=== PATIENT | female | born 1960 | race Caucasian/White ===

== ENCOUNTER 2018-11-07 16:49 | Emergency (ER) | payer OTHER ==
[~2018-11-07] VITALS: Ht 162.6 cm; Wt 70.3 kg
[~2018-11-07 16:49] MED LIST: ACET325T9 PO
[2018-11-07 17:01] VITALS: BP 144/84
--- NOTE | 2018-11-07 17:11 | PHYS DOC ---
Past History Past Medical History: Cancer (renal), COPD Past Surgical History: Cancer Surgery (right nephrectomy), , Hysterectomy Smoking: Non-smoker Alcohol Use: Rarely Drug Use: None Adult General Chief Complaint Chief Complaint: FLU SYMPTOM HPI HPI Patient is a 58-year-old female presents with cough and congestion. This has been going on for 3 days. Subjective fever. No relief with Tylenol or TheraFlu. Cough is productive of yellow tinged sputum. There is some nausea, no vomiting, no diarrhea. No flu vaccine this year.[] Review of Systems Review of Systems Constitutional: Denies shaking chills [] Eyes: Denies change in visual acuity, redness, or eye pain [] HENT: Denies ear pain or sore throat [] Respiratory: Denies shortness of breath, see history of present illness [] Cardiovascular: No chest pain or palpitations[] GI: Denies abdominal pain, nausea, vomiting, bloody stools or diarrhea [] : Denies dysuria or hematuria [] Musculoskeletal: Denies back pain or joint pain [] Integument: Denies rash or skin lesions [] Neurologic: Denies headache, focal weakness or sensory changes [] Endocrine: Denies polyuria or polydipsia [] All other systems were reviewed and found to be within normal limits, except as documented in this note. Allergies Allergies Allergies Coded Allergies Type Severity Reaction Last Updated Verified acetaminophen Allergy Intermediate Itching 08/10/15 Yes hydrocodone Allergy Intermediate Itching 08/10/15 Yes Physical Exam Physical Exam Constitutional: Well developed, well nourished, no acute distress, non-toxic appearance. [] HENT: Normocephalic, atraumatic, left maxillary sinus tenderness to percussion, bilateral external ears normal, oropharynx moist, no oral exudates, nose normal. [] Eyes: PERRLA, EOMI, conjunctiva normal, no discharge. [] Neck: Normal range of motion, no tenderness, supple, no stridor. [] Cardiovascular:Heart rate regular rhythm, no murmur [] Lungs & Thorax: Bilateral breath sounds are coarse, no wheezes, no increased work of breathing[] Abdomen: Bowel sounds normal, soft, no tenderness, no masses, no pulsatile masses. [] Skin: Warm, dry, no erythema, no rash. [] Back: No tenderness, no CVA tenderness. [] Extremities: No tenderness, no cyanosis, no clubbing, ROM intact, no edema. [] Neurologic: Alert and oriented X 3, normal motor function, normal sensory function, no focal deficits noted. [] Psychologic: Affect normal, judgement normal, mood normal. [] Current Patient Data Vital Signs Vital Signs Date Time Temp Pulse Resp B/P (MAP) Pulse Ox O2 Delivery O2 Flow Rate FiO2 11/07/18 17:01 99.5 110 18 94 Room Air EKG EKG [] Radiology/Procedures Radiology/Procedures Chest x-ray shows no infiltrate, no effusion, no pneumothorax[] Course & Med Decision Making Course & Med Decision Making Pertinent Labs and Imaging studies reviewed. (See chart for details) Medical decision making: There is no evidence of pneumonia or pneumothorax. This may be a flu syndrome however patient is beyond the time frame for Tamiflu to be effective so this test was not ordered since it would not change treatment. We'll treat patient for her symptoms. ED course: Patient arrived, was placed in bed, and tolerated exam well. She was given a breathing treatment which improved breath sounds. Lungs were clear to auscultation. Findings were discussed with the patient and family who voiced understanding. All questions were answered. She was discharged in improved condition.[] Dragon Disclaimer Dragon Disclaimer This electronic medical record was generated, in whole or in part, using a voice recognition dictation system. Departure Departure: Impression: Primary Impression: Acute bronchitis Additional Impression: Influenza-like illness Disposition: HOME, SELF-CARE Condition: IMPROVED Referrals: EMILY LEE MD (PCP) Follow-up in 2 days Patient Instructions: Acute Bronchitis, Influenza, Adult Additional Instructions: Drink plenty of fluids, frequent small sips. No fatty foods, no milk, and no pepper for the next 48 hours. For the next 48 hours eat a diet rich in carbohydrates with foods such as bananas, rice, applesauce, and toast. Follow- up with your regular doctor in 2 days. Return to the ER if worsening difficulty breathing or any other concerns. Scripts Albuterol Sulfate (PROVENTIL HFA INHALER) 6.7 Gm Hfa.aer.ad 1 PUFF INH PRN Q4HRS PRN for FOR ASTHMA, #1 INHALER 0 Refills Prov: TAYLOR BORJA DO 11/07/18 Ondansetron Hcl (ZOFRAN) 4 Mg Tablet 1 TAB PO Q6HRS for nausea or vomiting, #20 TAB Prov: TAYLOR BORJA DO 11/07/18 D-Methorphan Hb/Prometh Hcl (PROMETHAZINE-DM SYRUP) 118 Ml Syrup 5 ML PO PRN Q4HRS for CONGESTION, #120 ML Prov: TAYLOR BORJA DO 11/07/18 Problem Qualifiers Primary Impression: Acute bronchitis Bronchitis organism: unspecified organism Qualified Codes: J20.9 - Acute bronchitis, unspecified TAYLOR BORJA DO Nov 07, 2018 17:11
[2018-11-07] MEDS ORDERED: IPRATRPIUM/ALBUTEROL 0.5/2.5MG 3 ML NEBU. NEB ONE (17:15)
[2018-11-07] MEDS ORDERED: ALBU2.5V8 INH (17:58)
[2018-11-07] MEDS ORDERED: D-ME118S2 PO (17:58)
[2018-11-07] MEDS ORDERED: ONDA4TAB7 PO (17:58)
--- NOTE | 2018-11-07 18:01 | RAD ---
CHEST PA LATERAL CLINICAL INDICATION: Congestion, cough, fever, weakness COMPARISON: None FINDINGS: Heart is normal in size. Lungs are hyperinflated. Calcified granuloma in the lingula. No focal consolidation. No pneumothorax or pleural effusion. Visualized bony thorax is within normal limits. IMPRESSION: Findings of COPD. Superimposed atypical/viral infection not ruled out. Electronically signed by: Elías Dill DO (11/07/2018 5:58 PM) [facility]
== END 2018-11-07 18:00 | disposition home or self-care (01) ==
LOC: ER 16:49
DX: J20.9 Acute bronchitis, unspecified (principal); J11.1 Influenza due to unidentified influenza virus with other respiratory manifestations; J44.0 Chronic obstructive pulmonary disease with (acute) lower respiratory infection; Z88.6 Allergy status to analgesic agent; Z88.5 Allergy status to narcotic agent
CPT/HCPCS: 71046; 99283; J7620

== ENCOUNTER 2020-09-18 19:44 | Emergency (ER) | payer OTHER ==
[~2020-09-18] VITALS: Ht 162.6 cm; Wt 81.0 kg
[~2020-09-18 19:44] MED LIST changes: +ALBU2.5V8 INH; +ONDA4TAB7 PO; +PROM118S10 PO
--- NOTE | 2020-09-18 19:58 | PHYS DOC ---
Past History Past Medical History: Cancer, COPD Past Surgical History: Cancer Surgery, , Hysterectomy Smoking: Non-smoker Alcohol Use: Rarely Drug Use: None Adult General HPI HPI Patient is a 59-year-old female who presents with 2 days of body aches, sore throat, runny nose and nausea with 2 episodes of nonbloody nonbilious emesis. S tates that it started couple days ago with some generalized fatigue and muscle ache and today had a sore throat with 2 episodes of nausea and vomiting this morning. States that since then she is only been sipping on some fluid and had not eaten anything. 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 Denies chest pain, shortness of breath, abdominal pain, dysuria, hematuria, diarrhea. Review of Systems Review of Systems Review of systems otherwise unremarkable except noted in HPI Allergies Allergies Allergies Coded Allergies Type Severity Reaction Last Updated Verified acetaminophen Allergy Intermediate Itching 08/10/15 Yes hydrocodone Allergy Intermediate Itching 08/10/15 Yes Physical Exam Physical Exam Constitutional: Well developed, well nourished, no acute distress, non-toxic appearance. [] HENT: Normocephalic, atraumatic, bilateral external ears normal, oropharynx moist, oropharyngeal erythema, no oral exudates, nose normal. [] Eyes: conjunctiva normal, no discharge. [] Neck: Normal range of motion, no tenderness, supple, no stridor. [] Cardiovascular: Tachycardia initially which resolved in the ED Lungs & Thorax: Bilateral breath sounds clear to auscultation [] Abdomen: soft, no tenderness, no masses Skin: Warm, dry, no erythema, no rash. [] Back: No tenderness Extremities: Normal extremities Neurologic: Alert and oriented X 3, normal motor function, normal sensory f unction, no focal deficits noted. [] Psychologic: Affect normal, judgement normal, mood normal. [] EKG EKG [] Radiology/Procedures Radiology/Procedures [] Heart Score Risk Factors: Risk Factors: DM, Current or recent (<one month) smoker, HTN, HLP, family history of CAD, obesity. Risk Scores: Risk Factors: DM, Current or recent (<one month) smoker, HTN, HLP, family history of CAD, obesity. Course & Med Decision Making Course & Med Decision Making Patient is a 59-year-old female that presents with Covid/cold/flu symptoms for 2 days Vital signs notable for borderline tachycardia otherwise not concerning. Physical exam noted above. Given Zofran for nausea. Given p.o. liquids. Patient's nausea resolved and ab le to take p.o. Vital signs not concerning. Patient states she felt better and felt safe to discharge home. Gave nausea medicine for home. Advised on symptom control at home. Advised to follow-up with primary care tomorrow to set up a post ER follow-up visit as needed. Gave return precautions to the ED. Patient grateful, verbalized understanding and agreed with plan of discharge. [] Dragon Disclaimer Dragon Disclaimer This electronic medical record was generated, in whole or in part, using a voice recognition dictation system. Departure Departure: Impression: Primary Impression: Nausea & vomiting Additional Impressions: Body aches Sore throat Person under investigation for COVID-19 Disposition: 01 DC HOME SELF CARE/HOMELESS Condition: GOOD Referrals: BRIGHT YIP (PCP) Patient Instructions: Nausea and Vomiting, [id number], Viral Syndrome Additional Instructions: Please read all the attached information. Please begin Tylenol and/or ibuprofen at home as well as any other [id number] symptom management medicines. Please do not exceed 3000 mg of Tylenol daily. You have been tested for COVID-19. It is an infection caused by a new type of coronavirus. COVID-19 will cause cold-like or mild flu symptoms in most. It can cause more severe symptoms like problems breathing in some. There is no treatment for COVID-19. The body will clear the infection over time. Self-care will help to ease discomfort. Steps to Take: Self-Care Rest as needed. Healthy habits may help you feel better. Steps include: Choose healthy foods including fruits and vegetables. Drink water throughout the day. Get plenty of sleep each night. If you smoke, try to quit. It may ease breathing. Avoid alcohol. Keep Others Healthy The virus can spread to others. Droplets are released every time you sneeze or cough. The droplets can get into the mouth, nose, or eyes of people near you and lead to infection. To lower the chances of spreading COVID-19 to others: Stay at home until your doctor has said it is safe to leave. If you tested positive this will mean staying isolated until both of the following are true: At least 7 days have passed since the start of illness. You are free of fever for at least 72 hours without the use of medicine. During this time: - Avoid public areas, events, or transportation. Do not return to work or school until your doctor has said it is safe to do so. - Call ahead if you need to go to a medical center. Let them know you may have COVID-19. It will help them guide you where to go. They may also ask you to wear a facemask when you come to the office. - If you call for emergency medical services, let them know you may have COVID-19. While at home: - Try to avoid close contact with others. Stay about 6 feet away. - If possible, spend most of your time in a separate room from others. - Use a face mask if you will be in close contact with others such as sharing a room or vehicle. - Have someone wipe down common surfaces in the home. Use household machine sole leveler every day on areas like doorknobs, counters, or sinks. - Cough or sneeze into a tissue. Throw the tissue away right after use. If a tissue is not available, cough or sneeze into your elbow. - Wash your hands often. Wash them after sneezing or coughing. Use soap and water and wash for at least 20 seconds. Alcohol based hand reed cleaner can be used if soap and water is not available. - Do not prepare food for others. Avoid sharing personal items like forks, spoons, or toothbrushes. - Avoid close contact with pets while you are sick. There is no evidence of the virus passing to pets. This is a safety step until more is known about this virus. Isolation can be frustrating. Social interaction can help. Keep in touch with friends and family through phone and tech options. You can still interact with others in your home, just keep a safe distance of about 6 feet. Follow-up: Your doctors office will check in with you to see if there are any changes in your health. You may be asked to keep track of symptoms to share with them. They will also let you know when you are clear to be in public again. Problems to Look Out For: Contact your doctor if your recovery is not going as you expect. Get emergency care if you have problems such as: - Trouble breathing - Nonstop chest pain or pressure - Changes in awareness, confusion, or problems waking - Lips or face have bluish color - Worsening of symptoms If you think you have an emergency, call for emergency medical services right away. As taken from [facility] Please follow-up with your primary care physician as soon as you can for a repeat evaluation and imaging if necessary. Scripts Ondansetron Hcl (ZOFRAN) 4 Mg Tablet 1 TAB PO PRN Q6HRS PRN for NAUSEA for 3 Days, #12 TAB Prov: LUIS PRADO MD 09/18/20 Problem Qualifiers LUIS PRADO MD Sep 18, 2020 19:58
[2020-09-18] MEDS ORDERED: ONDANSETRON ODT 4 MG TAB.RAPDIS PO ONE (20:15)
[2020-09-18] MEDS ORDERED: IBUPROFEN 800 MG TABLET. PO ONE (21:00)
[2020-09-18 21:24] VITALS: BP 123/72
[2020-09-18] MEDS ORDERED: ONDA4TAB7 PO (21:28)
== END 2020-09-18 21:45 | disposition home or self-care (01) ==
LOC: ER 19:44
DX: R11.2 Nausea with vomiting, unspecified (principal); J02.9 Acute pharyngitis, unspecified; M79.10 Myalgia, unspecified site; J44.9 Chronic obstructive pulmonary disease, unspecified; Z20.822 Contact with and (suspected) exposure to COVID-19; Z88.6 Allergy status to analgesic agent; Z88.5 Allergy status to narcotic agent
CPT/HCPCS: 99285; C9803; Q0162; U0003

== ENCOUNTER 2020-12-15 14:28 | Emergency (ER) | payer OTHER ==
[~2020-12-15] VITALS: Ht 162.6 cm; Wt 78.5 kg
[2020-12-15] MEDS ORDERED: ONDANSETRON PF 4 MG/2 ML VIAL. IVP ONE ×2 (15:15→18:30)
[2020-12-15] MEDS ORDERED: IV NORMAL SALINE 1,000ML 1,000 ML IV ONE (15:15)
--- NOTE | 2020-12-15 15:31 | RAD ---
EXAM: Chest, single view. HISTORY: Cough. Covid 19. COMPARISON: 11/07/2018. FINDINGS: A frontal view of the chest is obtained. There is bilateral lower lobe interstitial infiltr ate. There is no consolidation, pleural effusion or pneumothorax. There is a calcified granuloma with in the left mid thorax. There is a stable cardiac silhouette. There are implanted breast prostheses. IMPRESSION: Bilateral lower lobe interstitial infiltrate. Electronically signed by: Urmila Dumont MD (12/15/2020 3:28 PM) [facility]
--- NOTE | 2020-12-15 15:40 | PHYS DOC ---
Past History Past Medical History: No Pertinent History Past Surgical History: Hysterectomy, Tonsillectomy Additional Past Surgical Histo: removed right kidney 2007 Smoking: Non-smoker Alcohol Use: Occasionally Drug Use: None Adult General Chief Complaint Chief Complaint: FLU SYMPTOM HPI HPI Patient is a 60-year-old female presents to the emergency department complaining of diarrhea, off-and-on throat pain, off-and-on headaches, changes with taste and smell ever since testing Covid positive last Wednesday. Patient states that she took a 500 mg Tylenol 3 hours prior to arrival, states she took 400 mg ibuprofen at 7 AM for a fever of "207 degrees "at home. Patient reports her was just admitted to the hospital for the COVID-19 virus yesterday. Patient states that she wants to be admitted to the hospital as well. Patient denies chest pain, shortness of breath, rashes to her skin, constipation. Patient states she had her right kidney removed related to kidney cancer in 2007. Patient reports an allergy to Vicodin. Patient states her only prescription medication is Prilosec daily. Patient cannot remember her primary care physician's name. Patient denies any other physical complaints or physical concerns. Review of Systems Review of Systems 14 body systems of review of systems have been reviewed. See HPI for pertinent positives and negative responses, otherwise all other systems are negative, nonpertinent or noncontributory. Current Medications Current Medications Current Medications Medications (Trade) Dose Ordered Sig/Robe Start Time Stop Time Status Last Admin Dose Admin Ondansetron HCl (Zofran) 4 mg 1X ONCE 12/15/20 15:15 12/15/20 15:26 DC Sodium Chloride 1,000 ml @ 1,000 mls/hr 1X ONCE 12/15/20 15:15 12/15/20 16:14 Allergies Allergies Allergies Coded Allergies Type Severity Reaction Last Updated Verified acetaminophen Allergy Intermediate Itching 09/18/20 Yes hydrocodone Allergy Intermediate Itching 09/18/20 Yes Physical Exam Physical Exam Constitutional: Well developed, well nourished, no acute distress, non-toxic appearance. 60-year-old female in no apparent distress. HENT: Normocephalic, atraumatic, bilateral external ears normal, oropharynx moist, no oral exudates, nose normal. Oral mucosa dry, no swelling or infectious process appreciated, no laryngeal edema appreciated. There is no drooling, no trismus appreciated. Eyes: PERRLA, EOMI, conjunctiva normal, no discharge. Neck: Normal range of motion, no tenderness, supple, no stridor. No C-spine tenderness, no meningismus signs, no nuchal rigidity appreciated. Cardiovascular:Heart rate regular rhythm, no murmur, heart sounds S1-S2 to auscultation. Lungs & Thorax: Bilateral breath sounds clear to auscultation no adventitious lung sounds appreciated. Abdomen: Bowel sounds normal, soft, no tenderness, no masses, no pulsatile masses. Skin: Warm, dry, no erythema, no rash. Back: No tenderness, no CVA tenderness. Extremities: No tenderness, no cyanosis, no clubbing, ROM intact, no edema. Distal cap refill less than 2 seconds, +2/4 pulses. Neurologic: Alert and oriented X 3, normal motor function, normal sensory f unction, no focal deficits noted. Psychologic: Affect normal, judgement normal, mood normal. Current Patient Data Vital Signs Vital Signs Date Time Temp Pulse Resp B/P (MAP) Pulse Ox O2 Delivery O2 Flow Rate FiO2 12/15/20 14:38 98.4 96 16 139/70 (93) 95 Room Air EKG EKG EKG performed at 1538 by ED nursing staff, shows a heart rate of 100 bpm without ectopy, MT interval 0.166, QTc interval 0.431, no acute STEMI, no ACS, no acute ischemia appreciated, however S wave progression in leads I, II and III concerning for mild right-sided heart strain likely due to COVID-19 virus cannot definitively rule out pulmonary emboli. Radiology/Procedures Radiology/Procedures PATIENT: JEFF REYNOSO ACCOUNT: [id number] : 1960 LOCATION: ER AGE: 60 SEX: F EXAM STATUS: REG ER ORD. PHYSICIAN: KENDALL PORTER APRN REASON: cough, covid positive PROCEDURE: CHEST AP ONLY EXAM: Chest, single view. HISTORY: Cough. Covid 19. COMPARISON: 11/07/2018. FINDINGS: A frontal view of the chest is obtained. There is bilateral lower lobe interstitial infiltrate. There is no consolidation, pleural effusion or pneumothorax. There is a calcified granuloma within the left mid thorax. There is a stable cardiac silhouette. There are implanted breast prostheses. IMPRESSION: Bilateral lower lobe interstitial infiltrate. Electronically signed by: Urmila Brennan MD (12/15/2020 3:28 PM) [facility] DICTATED AND SIGNED BY: URMILA BRENNAN MD DATE: 12/15/20 1527 CC: KENDALL PORTER APRN; [facility] N ~MTH0 0 PATIENT: JEFF REYNOSO ACCOUNT: [id number] : 1960 LOCATION: ER AGE: 60 SEX: F EXAM STATUS: REG ER ORD. PHYSICIAN: KENDALL PORTER APRN REASON: short of breath with elevated d-dimer PROCEDURE: CT ANGIOGRAPHY CHEST Exam: CT of chest with contrast INDICATION: Short of breath TECHNIQUE: Sequential axial images through the chest obtained following the administration of 100 mL of Isovue-370 IV contrast. Sagittal and coronal reformatted images were reconstructed from the axial data and reviewed. 3-D reformatted images were reconstructed from the axial data and reviewed. Exposure: One or more of the following in the visualized dose reduction techniques were utilized for this examination: 1. Automated exposure control 2. Adjustment of the MA and/or KV according to patient size 3. Use of iterative of reconstructive technique Comparisons: Chest x-ray same day FINDINGS: Visualized portions of the thyroid are unremarkable. Several prominent but not enlarged prevascular and pretracheal lymph nodes are noted. Heart size is normal. No pericardial effusion. Mild coronary artery calcifications. Thoracic aorta has a normal course and caliber. Pulmonary artery is not enlarged. No pulmonary embolus identified within the main, lobar or segmental pulmonary arteries. Airways are patent. No consolidation. There is patchy areas of groundglass opacity noted in the periphery of the lungs bilaterally. No suspicious lung nodules are identified. No pleural effusion or thickening. Diffuse hepatic steatosis. Small hiatal hernia. No suspicious osseous lesions or acute fractures. IMPRESSION: 1. No pulmonary embolus identified within the main, lobar or segmental pulmonary arteries. 2. Patchy areas of groundglass opacity noted in the periphery of the lungs bilaterally favored to be infectious or inflammatory in etiology. Correlate for atypical/viral causes such as Covid. 3. Few prominent but not enlarged mediastinal lymph nodes as described above, likely reactive to the above process. 4. Diffuse hepatic steatosis. Electronically signed by: Grant Vasquez MD (12/15/2020 5:32 PM) [facility] DICTATED AND SIGNED BY: GRANT VASQUEZ MD DATE: 12/15/201726 CC: GERMANNEERAJ APRN; [facility] N ~MTH0 0 Heart Score C/O Chest Pain: No Risk Factors: Risk Factors: DM, Current or recent (<one month) smoker, HTN, HLP, family history of CAD, obesity. Risk Scores: Risk Factors: DM, Current or recent (<one month) smoker, HTN, HLP, family history of CAD, obesity. Course & Med Decision Making Course & Med Decision Making Pertinent Labs and Imaging studies reviewed. (See chart for details) 60-year-old female, vital signs reviewed, presents emergency department with complaints of flulike symptoms since testing positive for the COVID-19 virus. Patient also is requesting admission to the hospital since her was admitted yesterday for the COVID-19 virus. Patient's physical examination concerning for mild dehydration related to dry oral mucosa. Will order cardiopulmonary work-up, D-dimer to rule out pulmonary emboli. IV normal saline for physical presentation of dehydration. Patient is D-dimer slightly elevated at 0.59, right at cut off per age adjustment. However related to S wave progression on EKG will perform PE study with CT angio chest. Discussed findings with patient, patient is amenable for CT angio chest. Patient reports she is no longer nauseated after being given [address] negative for pulmonary emboli, shows groundglass bilateral lower lobe infiltrate which is consistent with her COVID-19 virus diagnosis, the patient is not hypoxic. There was some discrepancy between computerized documentation of patient's O2 sat and bedside O2 sat, a arterial blood glass was drawn to rule out hypoxia. ABG results within normal limits, the patient is not hypoxic. The patient's pH 7.385, PCO2 34.5, PO2 71. Patient has been given 1 g Tylenol for fever of 101.9. Recheck of patient's temp patient's temperature 100.0. Patient's vital signs within normal limits. Discussed with patient to continue Tylenol and Motrin for Covid19 symptoms, will prescribe Zofran ODT for nausea, patient is to call her primary care physician tomorrow for a reevaluation of the COVID-19 symptoms she is experiencing. Patient gave verbal understanding of discharge home instructions, use of Tylenol and Motrin for ongoing COVID-19 symptoms, use of Zofran ODT for nausea, will call her primary care physician tomorrow for reevaluation. Return to ER precautions and concerns, patient was thankful and ready to go home, patient was discharged home without incident. Dragon Disclaimer Dragon Disclaimer This electronic medical record was generated, in whole or in part, using a voice recognition dictation system. Departure Departure: Impression: Primary Impression: Counseled about COVID-19 virus infection Additional Impressions: Educated about COVID-19 virus infection COVID-19 Fever and chills Disposition: 01 HOME / SELF CARE / HOMELESS Condition: GOOD Referrals: [facility] (PCP) Additional Instructions: You are seen today in the emergency department for symptoms related to your COVID-19 virus infection. Your labs were equivocal and did not show any signs or concerns that would require hospitalization today. Your chest x-ray and CT chest showed signs of your COVID-19 virus infection, however your lab work such as your ABG did not show signs of hypoxia. You did experience some nausea while in the ER, this was resolved with Zofran. As we discussed I am prescribing you Zofran ODT, this is not a pill that you swallow with fluids, this tablet you let dissolve on your tongue like a cough drop. Please call your primary care Dr. Blum tomorrow for a reevaluation of your COVID-19 symptoms. Please return to the emergency department for worsening symptoms or other concerns. EMERGENCY DEPARTMENT GENERAL DISCHARGE INSTRUCTIONS Thank you for coming to [facility] (ED) today and trusting us with you care. We trust that you had a positivie experience in our Emergency Department. If you wish to speak to the department management, you may call the director at [phone]. YOUR FOLLOW UP INSTRUCTIONS ARE FOLLOWS: 1. Do you have a private Doctor? If you do not have a private doctor, please ask for a resource list of physicians or clinics that may be able to assist you with follow up care. 2. The Emergency Physician has interpreted your x-rays. The X-Ray specialist will also review them. If there is a change in the findings, you will be notified in 48 hours when at all possible. 3. A lab test or culture has been done, your results will be reviewed and you will be notified if you need a change in treatment. ADDITIONAL INSTRUCTIONS AND INFORMATION: 1. Your care today has been supervised by a physician who is specially trained in emergency care. Many problems require more than one evaluation for a complete diagnosis and treatment. We recommend that you schedule your follow up appointment as recommended to ensure complete treatment of you illness or injury. If you are unable to obtain follow up care and continue to have a problem, or if your condition worsens, we recommend that you return to the ED. 2. We are not able to safely determine your condition over the phone nor are we able to give sound medical advice over the phone. For these safety reasons, if you call for medical advice we will ask you to come to the ED for further evaluation. 3. If you have any questions regarding these discharge instructions please call the ED at [phone]. SAFETY INFORMATION: In the interest of safety, wellness, and injury prevention; we encourage you to wear your sealbelt, if you smoke; quite smoking, and we encourage family to use a protective helmet for bicycling and other sporting events that present an increased risk for head injury. IF YOUR SYMPTOMS WORSEN OR NEW SYMPTOMS DEVELOP, OR YOU HAVE CONCERNS ABOUT YOUR CONDITION; OR IF YOUR CONDITION WORSENS WHILE YOU ARE WAITING FOR YOUR FOLLOW UP APPOINTMENT; EITHER CONTACT YOUR PRIMARY CARE DOCTOR, THE PHYSICIAN WHOSE NAME AND NUMBER YOU WERE GIVEN, OR RETURN TO THE ED IMMEDIATELY. Scripts Ondansetron (ONDANSETRON ODT) 4 Mg Tab.rapdis 1 TAB PO PRN Q6-8HRS for NAUSEA, #16 TAB 0 Refills Prov: KENDALL PORTER APRN 12/15/20 Problem Qualifiers KENDALL PORTER APRN December 15, 2020 15:40
[2020-12-15 15:49] LABS: BASO % 0 % (0-3); EOS % 0 % (0-3); HEMATOCRIT 41.2 % (36.0-47.0); HEMOGLOBIN 14.2 g/dL (12.0-15.5); LYMPH # 1.1 x10^3/uL (1.0-4.8); LYMPH % 25 % (24-48); MEAN CORPUSCULAR HEMOGLOBIN 34 pg (25-35); MEAN CORPUSCULAR HGB CONC 35 g/dL (31-37); MEAN CORPUSCULAR VOLUME 97 fL (79-100); MONO # 0.7 x10^3/uL (0.0-1.1); MONO % 16 % (0-9); NEUT # 2.6 x10^3uL (1.8-7.7); NEUT % 60 % (31-73); PLATELET COUNT 202 x10^3/uL (140-400); RED BLOOD COUNT 4.24 x10^6/uL (3.50-5.40); RED CELL DISTRIBUTION WIDTH 12.8 % (11.5-14.5); WHITE BLOOD COUNT 4.4 x10^3/uL (4.0-11.0)
[2020-12-15 15:57] LABS: CALCIUM 8.8 mg/dL (8.5-10.1); GFR 56.7; POTASSIUM 3.7 mmol/L (3.5-5.1)
[2020-12-15 16:03] LABS: ALBUMIN 3.6 g/dL (3.4-5.0); ALBUMIN/GLOBULIN RATIO 0.8 (1.0-1.7); TOTAL BILIRUBIN 0.4 mg/dL (0.2-1.0)
[2020-12-15] MEDS ORDERED: IOHEXOL 350 MG/ML 100 ML VIAL. IV ONE (16:30)
[2020-12-15] MEDS ORDERED: CONTRAST GIVEN. MC PRN (16:45)
--- NOTE | 2020-12-15 17:34 | RAD ---
Exam: CT of chest with contrast INDICATION: Short of breath TECHNIQUE: Sequential axial images through the chest obtained following the administration of 100 mL of Isovue-370 IV contrast. Sagittal and coronal reformatted images were reconstructed from the axial data and reviewed. 3-D reformatted images were reconstructed from the axial data and reviewed. Exposure: One or more of the following in the visualized dose reduction techniques were utilized for this examination: 1. Automated exposure control 2. Adjustment of the MA and/or KV according to patient size 3. Use of iterative of reconstructive technique Comparisons: Chest x-ray same day FINDINGS: Visualized portions of the thyroid are unremarkable. Several prominent but not enlarged prevascular a nd pretracheal lymph nodes are noted. Heart size is normal. No pericardial effusion. Mild coronary artery calcifications. Thoracic aorta penaloza s a normal course and caliber. Pulmonary artery is not enlarged. No pulmonary embolus identified with in the main, lobar or segmental pulmonary arteries. Airways are patent. No consolidation. There is patchy areas of groundglass opacity noted in the perip bill of the lungs bilaterally. No suspicious lung nodules are identified. No pleural effusion or thickening. Diffuse hepatic steatosis. Small hiatal hernia. No suspicious osseous lesions or acute fractures. IMPRESSION: 1. No pulmonary embolus identified within the main, lobar or segmental pulmonary arteries. 2. Patchy areas of groundglass opacity noted in the periphery of the lungs bilaterally favored to be infectious or inflammatory in etiology. Correlate for atypical/viral causes such as Covid. 3. Few prominent but not enlarged mediastinal lymph nodes as described above, likely reactive to the above process. 4. Diffuse hepatic steatosis. Electronically signed by: Grant Oreilly MD (12/15/2020 5:32 PM) [facility]
[2020-12-15] MEDS ORDERED: ACETAMINOPHEN 500 MG TABLET PO ONE (18:30)
[2020-12-15 19:32] LABS: BGAS PH 7.4 (7.35-7.45)
[2020-12-15] MEDS ORDERED: ONDA4TAB12 PO (19:39)
[2020-12-15] MEDS ORDERED: ONDANSETRON 4MG ODT 4TABLET STARTPACK. PO ONE (20:00)
[2020-12-15 20:40] VITALS: BP 107/58
--- NOTE | 2020-12-16 00:08 | EKG ---
[address] [address] Test Date: 2020-12-15 Test Time: 15:38:16 Pat Name: JEFF REYNOSO Department: Room: Gender: F Soa Engineer: : 1960 Requested By: KENDALL PORTER Order Number: [id number] Reading MD: Measurements Intervals [place] Rate: 100 P: 49 [place]: 166 QRS: -43 QRSD: 78 T: 66 QT: 332 QTc: 431 Interpretive Statements SINUS RHYTHM ABNORMAL LEFT AXIS DEVIATION R-S TRANSITION ZONE IN V LEADS DISPLACED TO THE LEFT LOW LIMB LEAD VOLTAGE S1,S2,S3 PATTERN LEFT ANTERIOR FASCICULAR BLOCK ABNORMAL ECG RI6.02 No previous ECG available for comparison
== END 2020-12-15 20:40 | disposition home or self-care (01) ==
LOC: ER 14:28
DX: U07.1 COVID-19 (principal); Z88.8 Allergy status to other drugs, medicaments and biological substances; Z88.5 Allergy status to narcotic agent
CPT/HCPCS: 36415; 36600; 71045; 71275; 80053; 82803; 84484; 85025; 85379; 93005; 96361; 96374; 96376; 99285; J2405; J7030

== ENCOUNTER → 2020-12-27 | Outpatient (CLI) | payer OTHER ==
[2020-12-15 20:40] VITALS: BP 107/58
[~2020-12-27] MED LIST changes: +ONDA4TAB12 PO
--- NOTE | 2020-12-27 15:29 | RAD ---
Examination: LEFT LOWER EXTREMITY - UNILATERAL VENOUS DOPPLER Technique: Ultrasound evaluation of the left lower extremity was performed from the groin to the uppe r calf with leone scale, spectral and color doppler evaluation. Indication: Leg swelling Comparison: None Findings: There is normal venous flow and compressibility of left common femoral vein, femoral vein, popliteal vein, and visualized proximal calf veins. Impression: No evidence for deep vein thrombosis of left lower extremity from the level of the calf v eins to the groins. Electronically signed by: Gene Gaspar MD (12/27/2020 3:27 PM) [facility]
== END ==
LOC: US 14:53
PROVIDERS: ATTEND Family Medicine Sports Medicine
DX: M79.605 Pain in left leg (principal)
CPT/HCPCS: 93971